=== PATIENT | male | born 1970 | race Caucasian/White ===

== ENCOUNTER 2024-11-17 23:05 | Emergency (ER) | payer SELFPAY ==
[2024-11-17 23:08] VITALS: BP 152/102
[2024-11-18 00:58] VITALS: BMI 35.6
[2024-11-18 01:01] VITALS: BP 153/86
--- NOTE | 2024-11-18 02:40 | ED.GENMED ---
History of Present Illness
General
Chief Complaint: Back Pain
Source: patient
Exam Limitations: none
Time Seen by Provider: 11/18/24 02:21
Nursing documentation reviewed up to this point in time: agreed with
History of Present Illness
History of Present Illness:
Note:
CHIEF COMPLAINT(S)
Back pain.
HISTORY OF PRESENT ILLNESS
The patient is a 54-year-old male with pmh of colon cancer not in active treatment, presenting with a recent exacerbation of chronic back pain, described as lumbar spondylosis, which began approximately one week ago. The patient attributes this
flare to lifting boxes while moving to a new residence. The patient recently moved here from [place]. The pain is localized to the middle of the back and does not radiate to the legs. The patient reports that it is aggravated by walking but
denies any leg weakness, numbness, tingling, urinary incontinence, or fever. The pain is reported as tighter and more severe compared to previous flares, but otherwise consistent with his typical symptoms. The patient has a history of a
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 He also reports having adverse reactions to many Previously, the patient has been
treated with gabapentin, prednisone, and physiotherapy with some relief. The patient has attempted acetaminophen without relief and is considering other therapeutic interventions. He states that his primary care provider used steroids and oxycodone
tablets for previous flairs.
PAST MEDICAL AND SURIGICAL HISTORY
The patient has a history of cancer treated with radiation therapy in 2019, resulting in gastrointestinal issues. The patient was diagnosed with lumbar spondylosis in 2020 or 2021.
CHRONIC MEDICAL CONDITIONS SIGNIFICANTLY AFFECTING CARE
Lumbar spondylosis.
SOCIAL DETERMINANTS AFFECTING HEALTH
The patient mentioned recent stress associated with moving and is awaiting the start of a new job. There are concerns from the patient�s spouse about the patient�s sleep and mobility challenges. The patient is currently in the process of
establishing care with a primary care provider but has faced delays in securing an appointment.
ALLERGIES
NSAIDs (intolerance due to gastrointestinal issues), Flexeril (cyclobenzaprine intolerance).
PAST MEDICAL HISTORY
Lumbar spondylosis.
REVIEW OF SYSTEMS
- Musculoskeletal: Middle back pain, non-radiating.
- Neurological: Denies leg weakness, numbness, or tingling.
- General: Reports no fevers, nausea, or vomiting.
PHYSICAL EXAM
General: Alert, no acute distress.
Skin: Warm, dry.
Head: Normocephalic, atraumatic.
Neck: Supple, trachea midline.
Eye, Ears, Nose, Mouth, and Throat: Oral mucosa moist.
Cardiovascular: Normal peripheral perfusion, No edema.
Respiratory: Respirations are non-labored.
Gastrointestinal: Abdomen nondistended.
Back: Pain in the middle of the back.
Musculoskeletal: Normal range of motion, normal strength.
Neurological: Alert and oriented to person, place, time, and situation, No focal neurological deficit observed.
Psychiatric: Cooperative, appropriate mood & affect.
PLAN
1. Administer a Toradol (ketorolac tromethamine) injection for immediate pain relief
2. Conduct lumbar spine imaging to assess for any changes or new pathology.
3. Initiate a prednisone therapy regimen as a short burst to address inflammation.
4. Consider prescribing transdermal lidocaine patches for additional pain management.
5. Assist the patient in securing follow-up with a primary care provider for ongoing management and potential referral to orthopedics or pain management as well as pain management doctor
6. Education patient on prescribing narcotic analgesics
DIFFERENTIAL DIAGNOSIS
The Differential Diagnosis includes, in no particular order and is not limited to:
1. Lumbar Spondylosis
2. Lumbar Disc Herniation
3. Spinal Stenosis
4. Vertebral Compression Fracture
5. Muscular Strain
6. Osteoarthritis
7. Ankylosing Spondylitis
8. Metastatic Bone Disease
9. Infectious Spondylitis
10. Cauda Equina Syndrome
Disposition:
SUMMARY OF ENCOUNTER
A 54-year-old male with a past medical history of colon cancer and lumbar spondylosis presented to the emergency department with concerns of low back pain. He reported historical intermittent back pain due to spondylosis, with a recent exacerbation
after moving boxes. The patient reported taking acetaminophen without relief, and has a known poor tolerance to NSAIDs and muscle relaxants. No red flag symptoms such as urinary or fecal incontinence, fever, chills, or genital paresthesias were
noted. Physical examination showed no midline spinal tenderness, and the patient exhibited a steady gait without lower extremity weakness. Lumbar sprain or spondylarthritis was suspected. The patient was started on a course of prednisone.
PLAN
Initiate a prednisone therapy regimen. Discussed with the patient the risks associated with opioid use. Provided a limited prescription for oxycodone for short-term use, and advised that it will not be refilled in the emergency department and for
follow-up care with his primary or automotive paint technician.
PATIENT EDUCATION AND COUNSELING
The patient was educated on the risks of opioid use, as they are highly addictive. The patient understood that the emergency department does not refill narcotic medications.
FOLLOW-UP INSTRUCTIONS
The patient was advised to follow up with his primary care provider or a automotive paint technician for ongoing care and management.
MEDICATION RECONCILIATION
Prescription provided in the emergency department includes a course of prednisone and a limited supply of oxycodone as patient is limited in what he can take for pain relief.
MEDICAL DECISION MAKING
-Complexity of Data Reviewed: Chronic conditions affecting care include colon cancer and lumbar spondylosis. Differential diagnosis includes: Lumbar Spondylosis, Lumbar Disc Herniation, Spinal Stenosis, Vertebral Compression Fracture, Muscular
Strain, Osteoarthritis, Ankylosing Spondylitis, Metastatic Bone Disease, Infectious Spondylitis, Cauda Equina Syndrome.
-Risk: Prescription medication was prescribed: prednisone and oxycodone. Consideration of admission/observation was not necessary as the patient was stable for discharge with outpatient management and follow-up. Care significantly affected by social
determinants of health was noted, including recent stress from moving and awaiting a new job.
DIAGNOSIS
- Lumbar Spondylosis (ICD-10: M47.816)
- Lumbar Sprain (ICD-10: S39.012A)
Review of Systems
Review of Systems
All Other Systems: ROS reviewed and negative except as documented in HPI and ROS
Phy Exam
Physical Exam
Physical Exam:
see hpi
Course
Orders/Labs/Results
Orders:
Orders
11/18/24 02:38
Ketorolac [Toradol] 15 mg IM NOW STA
Lidocaine [Lidocaine 4% Patch] 1 patch TOPICAL DAILY ONE
Apply Lidocaine patch(s) to:: right paralumbar
CR Lumbar Spine Comp Min 4 Vw* Urgent
Comment:
Reason For Exam: back pain
Vital Signs
Initial and Last Documented VS:
Initial Vital Signs
Temp Pulse Resp BP Pulse Ox
98 F 60 20 152/102 95
11/17/24 23:08 11/17/24 23:08 11/17/24 23:08 11/17/24 23:08 11/17/24 23:08
Last Documented Vital Signs
Temp Pulse Resp BP Pulse Ox
98 F 62 18 162/101 96
11/17/24 23:08 11/18/24 04:06 11/18/24 01:01 11/18/24 04:06 11/18/24 04:06
*Pulse Oximetry
SaO2: 99
Oxygen Mode of Delivery: Room air
Patient hypoxic: no
*Critical Care Note
Total Time (30-74mins, 75-104mins- exclusive of procedures): Not Applicable
ED Attending Note
-
Portions of this chart may have been created with voice recognition software.� Occasional wrong word or��sound alike� substitutions may have occurred due to the inherent limitations of voice recognition software.
Discharge Plan
Departure
Patient Disposition: Home (Routine Discharge)
Date of Disposition: 11/18/24
Time of Disposition: 04:06
Patient with high blood pressure during this ER visit?: Yes
Discharge Problem:
Low back pain
Instructions: Low Back Pain (DC), BLOOD PRESSURE
Prescriptions:
New
prednisone 20 mg tablet
40 mg PO DAILY 5 Days Qty: 10 0RF
oxycodone 5 mg capsule
5 mg PO Q4H PRN (Reason: pain) Qty: 8 0RF
Referrals:
[facility] [Outside] - Call in 1-3 days for appt
Chris Hazel MD [Active, Anesthesiology] - Call in 1-3 days for appt
NONE,* [Family Provider, Internal Medicine]
Activity Restrictions/Additional Instructions:
The medications have been sent to your pharmacy. Please call attached number to schedule appointments with him. I also recommend scheduling appointment to see a automotive paint technician. PLEASE RETURN TO THE ER SHOULD YOU DEVELOP URINARY OR
FECAL INCONTINENCE, FEVERS OR CHILLS, INABILITY TO AMBULATE, NUMBNESS OR TINGLING IN YOUR LOWER EXTREMITIES, OR ANY OTHER SIGNS OR SYMPTOMS WORRISOME TO YOU.
Interventions
Interventions:
*Risk Screen - Suicide Last Done: 11/17/24 23:08
*General Assessment Last Done: 11/18/24 00:58
*Neglect/Abuse Screening Last Done: 11/17/24 23:08
*ED- Fall Risk Assessment Last Done: 11/18/24 00:58
*ED COVID-19 Vaccine History Last Done: 11/18/24 00:58
*Nursing Disposition Last Done: 11/18/24 04:12
ED-Musculoskeletal Assessment Last Done: 11/18/24 01:02
Discharge Date and Time
Discharge Date/Time: 11/18/24 04:15
Print Language: TAJIK
[2024-11-18] MEDS: LIDOCAINE 4% PATCH 1 PATCH TOPICAL (02:58)
[2024-11-18] MEDS: TORADOL 15 MG IM (02:59)
[2024-11-18 04:06] VITALS: BP 162/101
== END 2024-11-18 04:15 | disposition home or self-care (01) ==
LOC: EMR 23:05
PROVIDERS: EMERGENCY PHYSICIAN Student in an Organized Health Care Education/Training Program
DX: S33.5XXA Sprain of ligaments of lumbar spine, initial encounter (principal); X50.0XXA Overexertion from strenuous movement or load, initial encounter; M47.816 Spondylosis without myelopathy or radiculopathy, lumbar region
CPT/HCPCS: 96372; 99284; 72110

== ENCOUNTER 2024-11-21 15:09 | Emergency (ER) | payer SELFPAY ==
[2024-11-21 15:10] VITALS: BP 148/96
[2024-11-21 16:10] VITALS: BMI 33.9
[2024-11-21] MEDS: PERCOCET 5/325 1 TABLET PO (17:50)
--- NOTE | 2024-11-21 20:13 | ED.GENMED ---
History of Present Illness
General
Chief Complaint: Back Pain
Source: patient
Exam Limitations: none
Time Seen by Provider: 11/21/24 17:29
Nursing documentation reviewed up to this point in time: agreed with
History of Present Illness
History of Present Illness:
Patient to ED wtih continued low back pain. He was seen in ED on 11/17 for same. Xray neg for acute findings. Exam consistent with musculoskeletal origin. No evidence of cauda equina. He was given rx for oxycodone 5mg prn. He states he has been
prescribed 10mg tablets in the past. Requesting rx to cover until he can be seen by PCP or pain management. He does not currently have a family doctor. States he moved here earlier this year and does not have a provide yet. No new symptoms today.
Brought self to ED by family for evall.
Past History
Past History
ED Past Medical History: Other (chronic back pain)
Review of Systems
Review of Systems
Allergies reviewed?: Yes
All Other Systems: ROS reviewed and negative except as documented in HPI and ROS
Constitutional: Reports no symptoms
EENT: Reports no symptoms
Respiratory: Reports no symptoms
Cardiac: Reports no symptoms
ABD/GI: Reports no symptoms
: Reports no symptoms
Musculoskeletal: Reports back pain
Skin: Reports no symptoms
Neurological: Reports no symptoms
Psychiatric: Reports no symptoms
Phy Exam
General Physical Exam
General Presentation: well appearing and mild distress
General age: appears stated age
General Skin: warm and dry
General Habitus: normal
General Mental: alert
Gastrointestinal Exam
Gastrointestinal Exam: non tender and soft
Musculoskeletal Exam
Musculoskeletal Exam: neuro vasc intact
Skin Exam
Skin Exam: normal color, warm/dry and no rash
Psychiatric Exam
Psychiatric Exam: normal mood/affect
Course
Orders/Labs/Results
Orders:
Orders
11/21/24 17:39
Oxycodone/Acetaminophen [Percocet 5/325] 1 tablet PO NOW STA
Vital Signs
Initial and Last Documented VS:
Initial Vital Signs
Temp Pulse Resp BP Pulse Ox
98.1 F 80 18 148/96 97
11/21/24 15:10 11/21/24 15:10 11/21/24 15:10 11/21/24 15:10 11/21/24 15:10
Last Documented Vital Signs
Temp Pulse Resp BP Pulse Ox
98.1 F 80 18 148/96 97
11/21/24 15:10 11/21/24 15:10 11/21/24 15:10 11/21/24 15:10 11/21/24 20:19
*Pulse Oximetry
SaO2: 97
Oxygen Mode of Delivery: Room air
Patient hypoxic: no
*Critical Care Note
Total Time (30-74mins, 75-104mins- exclusive of procedures): Not Applicable
Update Note
Update Note:
Patient to ED with chronic low back pain. No history of new trauma. No change in location of pain. Taking tylenol without improvement. Was taking Oxycodone 10mg but does not have a current prescription. States he moved here for out of state and
does not have a provider. No concerning findings on exam. No evidence of cauda equina. Given oxy 5mg in ED and will send a short rx to pharmacy. I explained to him that he will not be able to continue to use ED for med refill, that it is
absolutely necessary that he obtain a primary care provider. He was given the number for [facility]. He agrees with plan. Will discharge home.
ED Attending Note
-
Portions of this chart may have been created with voice recognition software.� Occasional wrong word or��sound alike� substitutions may have occurred due to the inherent limitations of voice recognition software.
Discharge Plan
Departure
Patient Disposition: Home (Routine Discharge)
Date of Disposition: 11/21/24
Time of Disposition: 17:40
Patient with high blood pressure during this ER visit?: No
Condition: Good
Covid-19: Not Applicable
Discharge Problem:
Back pain
Instructions: Low Back Pain (DC)
Prescriptions:
New
oxycodone 5 mg capsule
5 mg PO Q4H PRN (Reason: Pain) Qty: 8 0RF
No Action
prednisone 20 mg tablet
40 mg PO DAILY 5 Days Qty: 10 0RF
oxycodone 5 mg capsule
5 mg PO Q4H PRN (Reason: pain) Qty: 8 0RF
Referrals:
[facility] [Outside] - Call in 1-3 days for appt
Nile Cain, DO [Non-Admitting Privileges, Orthopedics] - Next open appointment
NONE,* [Family Provider, Internal Medicine]
Interventions
Interventions:
*Risk Screen - Suicide Last Done: 11/21/24 15:10
*General Assessment Last Done: 11/21/24 15:10
*Neglect/Abuse Screening Last Done: 11/21/24 15:10
*ED- Fall Risk Assessment Last Done: 11/21/24 16:10
*ED COVID-19 Vaccine History Last Done: 11/21/24 15:10
*Nursing Disposition Last Done: 11/21/24 18:00
ED-Musculoskeletal Assessment Last Done: 11/21/24 16:10
Discharge Date and Time
Discharge Date/Time: 11/21/24 17:57
Print Language: [place]
Musculoskeletal Injury Exam
Musculoskeletal Injury Exam
Bilateral Lower Back:
Pain with Movement?: Moderate
Tender to palpation?: Moderate
Soft tissue swelling?: None
External deformity and angulation?: None
Joint effusion?: None
Contusion?: None
Hematoma-local bleeding into tissue?: None
Strain- Sprain- Tear (Connective tissue injury)?: None
Crepitus with movement?: No
Joint instability?: No
Malalignment/deformity?: No
Range of motion: Limited
Distal skin color and temperature: normal-warm & good color
Capillary Refill: normal
Normal distal neurovascular exam?: Yes
== END 2024-11-21 17:57 | disposition home or self-care (01) ==
LOC: EMR 15:09
PROVIDERS: EMERGENCY PHYSICIAN Emergency Medicine
DX: M54.50 Low back pain, unspecified (principal); G89.29 Other chronic pain
CPT/HCPCS: 99283